=== PATIENT | female | born 1945 | race Caucasian/White ===

== ENCOUNTER 2017-11-27 09:09 | Day surgery (SDC) | payer OTHER, MEDICARE ==
--- NOTE | 2017-11-21 10:20 | HP ---
Admitting History and Physical - Primary Care Physician PCP: Erlin Galo - Admission Chief Complaint: Right breast cancer History of Present Illness: 72 year old postmenapausal female mammogram showing nodular density towards upper aspect right breast and compression views and US 09/2017 showing 3 densities RUOQ 2 cm FN 1.5 cm,3 cm fn 1.6 cm and 4cm fn 1.6 cm . She underwent US core biopsies of the 2 cm and 3 cm FN showing infiltrating mammary carcinoma ER/ND + HER neg She then underwent a separate bx for the 4cm FN and it came back as a fibroadenoma. MRI breast 10/2017 showed right breast cancer x2 at 2:00 and 2 smaller lesions right 6:00 and 3:00 suspicious. Us biopsies of these additional MRI findings were benign but did not correlate with MRI therefore will need to be localized during wide excision. She will need 4 needle localizations . two for the cancer and two for the suspicious findings on MRI with discordinant biopsies. 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: Seizure ( controlled since 1972 last seizure 1986 after trial of stopping tegretol) Cardiovascular: Yes: HTN, Hyperlipdemia - Past Surgical History Additional Past Surgical History: left forearm fracture 2001 - Smoking History Smoking history: Never smoked Have you smoked in the past 12 months: No - Alcohol/Substance Use Hx Alcohol Use: No Home Medications - Allergies Allergies/Adverse Reactions: Allergies Allergy/AdvReac Type Severity Reaction Status Date / Time No Known Allergies Allergy Verified 11/21/17 10:21 - Home Medications Home Medications (free text): tegretol,pravastatin,lisinopril HCTHZ Family Disease History - Family Disease History Family History: Denies Physical Examination Constitutional: Yes: Well Nourished Breast(s): Yes: Other (ptotic C cup with right breast echymosis from recent core biopsies upper aspect. No palpable densities just thickening due to biopsies no adenopathy bilaterally) Problem List - Problems (1) Breast cancer, right Code(s): C50.911 - MALIGNANT NEOPLASM OF UNSP SITE OF RIGHT FEMALE BREAST Qualifiers: Breast location: upper inner quadrant of breast Patient sex: female Assessment/Plan Right breast wide excision with sentenel node biopsy ,lymphoscintogram, possible axillary node dissection, 4 needle localizations
[2017-11-23 11:51] VITALS: BMI 26.7
[2017-11-27] MEDS ORDERED: ISOSULFAN BLUE 10 MG/ML VIAL SQ ONE (12:57)
[2017-11-27] MEDS ORDERED: BUPIVACAINE HCL/PF 2.5 MG/ML - 30 ML VIAL IJ ONE (12:58)
[2017-11-27] MEDS ORDERED: LIDOCAINE HCL 1%, 10 MG/ML (20ML VIAL) ONE (12:58)
[2017-11-27] MEDS ORDERED: KETOROLAC TROMETHAMINE 30 MG/1 ML VIAL IVPUSH PRN (13:24)
[2017-11-27] MEDS ORDERED: ONDANSETRON 4 MG/2 ML VIAL IVPUSH PRN ×2 (13:24→16:39)
[2017-11-27] MEDS ORDERED: DEXTROSE 5%-0.45% SALINE 1,000 ML IV SCH (13:30)
[2017-11-27] MEDS ORDERED: MIDAZOLAM HCL 2 MG/2 ML SINGLE DOSE VIAL ONE (13:59)
[2017-11-27] MEDS ORDERED: LIDOCAINE HCL 2% 100 MG/5 ML DISP.SYRIN ONE (14:16)
[2017-11-27] MEDS ORDERED: ceFAZolin SODIUM 1 GM VIAL ONE (14:21)
[2017-11-27] MEDS ORDERED: DEXAMETHASONE SOD PHOSPHATE 4 MG/1 ML VIAL ONE (14:21)
[2017-11-27] MEDS ORDERED: ONDANSETRON 4 MG/2 ML VIAL ONE (14:21)
[2017-11-27] MEDS ORDERED: BUPIVACAINE HCL/PF 0.25% (2.5MG/ML) 10 ML VIAL IJ ONE ×2 (14:51→16:10)
[2017-11-27] MEDS ORDERED: SUCCINYLCHOLINE CHLORIDE 200 MG/10 ML VIAL ONE (14:56)
[2017-11-27] MEDS ORDERED: ePHEDrine SULFATE 50 MG/1 ML AMPULE ONE (15:08)
[2017-11-27] MEDS ORDERED: oxyCODONE HCL 5 MG TABLET PO PRN ×2 (16:39)
[2017-11-27] MEDS ORDERED: LACTATED RINGERS SOLUTION 1,000 ML IV SCH (16:45)
[2017-11-27] MEDS ORDERED: KETOROLAC TROMETHAMINE 30 MG/1 ML VIAL ONE (16:54)
[2017-11-27 18:59] VITALS: BP 135/72; PULSE 92; TEMP 98.7
--- NOTE | 2017-11-27 22:02 | OP ---
DATE OF OPERATION: 11/27/2017 PREOPERATIVE DIAGNOSIS: Right breast upper inner quadrant breast cancer x2 with 2 separate right MRI breast masses. PROCEDURE: Right breast partial mastectomy with MRI localization x4 with a right axillary sentinel lymph node biopsy and tissue transfer closure. ANESTHESIA: General laryngeal mask airway anesthesia. PRIMARY SURGEON: Erlin Galo MD DIRECTOR OF ONLINE EDUCATION: Lolis Reyes PA-C COMPLICATIONS: None. INDICATIONS: Briefly, the patient is a 72-year-old, G3, P3, postmenopausal white female. She has no family history of breast or ovarian cancer. She was noted to have a couple of densities towards the upper inner aspect of the right breast on screening mammography and ultrasound at the end of 2016. There were 3 separate densities seen on ultrasound in the right breast upper inner quadrant; 2, 3, and 4 cm from the nipple. All of these were biopsied and the densities 2 and 3 cm from the nipple turned out to be low grade infiltrating ductal cancers, which were ER [place]-positive and HER2-negative. She underwent the screening MRI, which showed a couple of other areas of suspicion and these were thought to be seen on ultrasound and she underwent ultrasound-guided biopsy of those 2 areas with clip placement, but they were benign. These were felt to be discordant with the MRI findings. The patient was advised to undergo right breast wide excision since all of these areas seem to be fairly closely approximated on the MRI and she was to have MRI localizations. She understood the need for a sentinel lymph node biopsy. DESCRIPTION OF PROCEDURE: She is brought in for the procedure on November 27, 2017, and underwent the lymphoscintigraphy with a periareolar injection of technetium 99 at [facility]. She was then brought to [facility] where the 4 MRI localizations were performed; 2 of the clips of the cancer, and 2 other areas that were seen on MRI of suspicion. She was brought into the operating room after being seen in the holding area where site verification was made and informed consent was obtained. She did enter a quality of life study for radiation as well. She was brought into the operating room and laid on the OR table in the supine position. Venodynes were placed on the lower extremities and she received 1 g of Ancef prior to incision. She underwent general laryngeal mask airway anesthesia and the right breast was sterilely prepped and draped in the usual fashion with the right arm prepped in the field. Then, 3 mL of Lymphazurin blue were injected intradermally and peritumor around the needle localization site and massage was instituted. The right axillary sentinel lymph node biopsy was first performed. An incision was made just below the hair-bearing area of the right axilla and dissection was undertaken. Two blue hot nodes were found in the level 1 region of the right axilla. The first sentinel node had a 10 second gamma count of 16,459 and the second sentinel lymph node had a 10 second gamma count of 3411. Background counts after removal of these 2 nodes was 323 and no other blue or hot nodes were found. Hemostasis was achieved and the axillary wound was closed by closing the soft tissue with 2-0 plain suture and then closing the skin with interrupted 3-0 deep dermal Vicryl suture and a running 4-0 subcuticular Biosyn suture. At this point, the wide excision was undertaken around the needle localization. A curvilinear incision was made just around the periareolar border of the right breast towards the upper quadrant. Dissection was undertaken around the needle localization and dissection was undertaken around all 4 wires. The breast tissue was completely removed with the wire intact within the specimen. Two of the wires were found to be in the soft tissue fat and after removal of the specimen, these wires just fell out. Specimen radiographs show removal of only 3 of the 4 clips initially with one of the clips where the cancer was, which was not in the specimen. At this point, I was able to find the other clip where the cancer was just towards the upper aspect of the excision. This was labeled as separate superior right breast mass and specimen radiographs showed the clip in question. There was also chronic fibroadenoma, which was excised, which was labeled right breast mass, likely fibroadenoma and sent separately to pathology. Since the separate superior breast mass was one of the cancers, we decided to do a separate wide excision around that superior mass and we did a full excision around that without difficulty and oriented the specimen with the long lateral and short superior suture and called that separate superior wide excision specimen. It was placed in formalin as a separate specimen. At this point, separate margins were taken around the initial wide excision with margins taken on the superior, inferior, medial, lateral, and deep aspects of the sutures marking the biopsy cavity side and these were all sent separately to pathology as margins for the first wide excision. Hemostasis was achieved. At this point, the tissue transfer closure was accomplished by undermining the breast tissue and brining in a 3 x 4 cm area of breast tissue into the wound to close the defect. The breast tissue was reapproximated using 2-0 plain suture. The skin was closed using interrupted 3-0 deep dermal Vicryl suture and a running 4-0 subcuticular Biosyn suture. Mastisol and Steri-Strips were applied over the wound with a compressive dressing placed over this. She was placed in a surgical bra postoperatively. The patient had the laryngeal mask airway tube removed at the end of the case and will be recovered in the postanesthesia care unit and discharged home the same day once discharge criteria are met. She will follow up in the office in 1 week for formal wound pathology check. All sponge and needle counts were correct at the end of the case. Estimated blood loss was about 30 mL. ERLIN GALO M.D. [id number]
--- NOTE | 2017-12-03 14:59 | PATH ---
Surgical Pathology Report Patient Name: DEBBIE STOVALL [facility]. Rec. #: [id number] /Age/Gender: 1945 (Age: 72) / F Account: [id number] Location: [facility] AMBULATORY Taken: 11/27/2017 Received: 11/27/2017 Reported: 12/03/2017 Physicians: Erlin Galo M.D. Specimen(s) Received A: RIGHT AXILLARY SENTINEL NODE #1 B: RIGHT AXILLARY SENTINEL NODE #2 C: RIGHT BREAST WIDE EXCISION D: RIGHT BREAST MASS E: RIGHT BREAST SUPERIOR CANCER WITH CLIP F: RIGHT BREAST SUPERIOR WIDE EXCISION G: RIGHT BREAST SUPERIOR MARGIN H: RIGHT BREAST MEDIAL MARGIN I: RIGHT BREAST LATERAL MARGIN J: RIGHT BREAST INFERIOR MARGIN K: RIGHT BREAST DEEP MARGIN Clinical History Invasive Ca, 2 separate cancers excised Final Diagnosis A. LYMPH NODE, RIGHT AXILLARY SENTINEL #1, EXCISION: ONE LYMPH NODE, NEGATIVE FOR METASTATIC CARCINOMA (0/1). B. LYMPH NODE, RIGHT AXILLARY SENTINEL #2, EXCISION: ONE LYMPH NODE, NEGATIVE FOR METASTATIC CARCINOMA (0/1). C. BREAST, RIGHT, WIDE EXCISION: INVASIVE DUCTAL CARCINOMA, MODERATELY DIFFERENTIATED (TUBULE SCORE: 3/3, NUCLEAR GRADE: 2/3, MITOTIC SCORE: 2/3; TOTAL NIKIA SCORE: 7/9). INVASIVE CARCINOMA MEASURES 1.5 CM IN GREATEST DIMENSION, MICROSCOPICALLY. ADDITIONAL SEPARATE FOCUS OF INVASIVE DUCTAL CARCINOMA, MODERATELY DIFFERENTIATED , MEASURING 4 MM IN GREATEST DIMENSION, TRANSECTED AT/EXTENDING TO THE SUPERIOR MARGIN, IS PRESENT AT 4 MM FROM THE MAIN TUMOR MASS (SEE NOTE). FOCAL DUCTAL CARCINOMA IN SITU (DCIS), SOLID TYPE, INTERMEDIATE NUCLEAR GRADE IS PRESENT AWAY FROM INVASIVE CARCINOMA. INVASIVE CARCINOMA EXTENDS TO THE SUPERIOR MARGIN AND IS CLOSE TO (< 1 MM) THE MEDIAL MARGIN. SEE SPECIMENS G-K FOR FINAL MARGINS. SKIN IS PRESENT AND IS UNINVOLVED BY CARCINOMA. LYMPHOVASCULAR INVASION IS IDENTIFIED. PRIOR BIOPSY SITE CHANGES ARE PRESENT. REMAINING BREAST TISSUE SHOWS FIBROCYSTIC CHANGES, INTRADUCTAL PAPILLOMA AND SMALL FIBROADENOMA. PATHOLOGIC STAGE (pTNM): (m) pT1c pN0. Note: The separate focus of invasive carcinoma may represent a portion of the second carcinoma which is excised in specimens E & F. Correlation with clinical and radiologic findings is recommended. D. BREAST, RIGHT, MASS, EXCISION: FIBROADENOMA SCLEROSED AND CALCIFIED. E. BREAST, RIGHT, SUPERIOR, CANCER WITH CLIP, EXCISION: INVASIVE DUCTAL CARCINOMA, MODERATELY DIFFERENTIATED (TUBULE SCORE: 3/3, NUCLEAR GRADE: 2/3, MITOTIC SCORE: 2/3; TOTAL NIKIA SCORE: 7/9). INVASIVE CARCINOMA MEASURES 1.3 CM IN GREATEST DIMENSION, MICROSCOPICALLY. DUCTAL CARCINOMA IN SITU (DCIS), SOLID, CRIBRIFORM AND PAPILLARY TYPE, INTERMEDIATE NUCLEAR GRADE IS PRESENT ADMIXED WITH INVASIVE CARCINOMA. INVASIVE CARCINOMA EXTENDS TO UNDESIGNATED INKED MARGINS ALONG A BROAD FRONT. DCIS IS CLOSE TO (< 1 MM) UNDESIGNATED INKED MARGINS AT A FEW FOCI. SEE SPECIMEN F FOR FINAL MARGINS. LYMPHOVASCULAR INVASION IS IDENTIFIED. PRIOR BIOPSY SITE CHANGES ARE PRESENT. SEE SPECIMEN C FOR PATHOLOGIC STAGE AND ALSO INVASIVE CARCINOMA CASE SUMMARY BELOW. F. BREAST, RIGHT, SUPERIOR, WIDE EXCISION: INVASIVE DUCTAL CARCINOMA, MODERATELY DIFFERENTIATED (TUBULE SCORE: 3/3, NUCLEAR GRADE: 2/3, MITOTIC SCORE: 2/3; TOTAL NIKIA SCORE: 7/9). INVASIVE CARCINOMA MEASURES 5 MM IN GREATEST DIMENSION, MICROSCOPICALLY. SURGICAL MARGINS ARE UNINVOLVED BY CARCINOMA; CARCINOMA IS AT 1 MM FROM THE CLOSEST (SUPERIOR) MARGIN. LYMPHOVASCULAR INVASION IS PRESENT. PRIOR BIOPSY SITE CHANGES ARE IDENTIFIED. REMAINING BREAST TISSUE SHOWS PROLIFERATIVE FIBROCYSTIC CHANGES AND INTRADUCTAL PAPILLOMA. SEE SPECIMEN C FOR PATHOLOGIC STAGE AND ALSO INVASIVE CARCINOMA CASE SUMMARY BELOW. G. BREAST, RIGHT, SUPERIOR MARGIN, EXCISION: BENIGN BREAST TISSUE. H. BREAST, RIGHT, MEDIAL MARGIN, EXCISION: RADIAL SCAR, USUAL DUCTAL HYPERPLASIA (UDH), INTRADUCTAL PAPILLOMA WITH FLORID HYPERPLASIA AND FIBROADENOMA. I. BREAST, RIGHT, LATERAL MARGIN, EXCISION: RADIAL SCAR, CYSTIC APOCRINE METAPLASIA, USUAL DUCTAL HYPERPLASIA (UDH) AND INTRADUCTAL PAPILLOMA WITH FLORID HYPERPLASIA. J. BREAST, RIGHT, INFERIOR MARGIN, EXCISION: FOCAL ATYPICAL DUCTAL HYPERPLASIA (ADH), CYSTIC APOCRINE METAPLASIA, USUAL DUCTAL HYPERPLASIA (UDH) AND INTRADUCTAL PAPILLOMA WITH FLORID HYPERPLASIA. K. BREAST, RIGHT, DEEP MARGIN, EXCISION: BENIGN FIBROADIPOSE TISSUE. Comments Breast Invasive Carcinoma: Surgical Pathology Case Summary (Based on AJCC TNM 8 th edition) Procedure _X_ Excision (less than total mastectomy) Specimen Laterality _X_ Right Tumor Size _X_ Greatest dimension of largest invasive focus >1 mm (millimeters): 15 mm Histologic Type _X_ Invasive carcinoma of no special type (ductal, not otherwise specified) Histologic Grade (Nikia Histologic Score) Glandular (Acinar)/Tubular Differentiation _X_ Score 3 (<10% of tumor area forming glandular/tubular structures) Nuclear Pleomorphism _X_ Score 2 Mitotic Rate _X_ Score 2 Overall Grade _X_ Grade 2 (scores of 6 or 7) Tumor Focality _X_ Multiple foci of invasive carcinoma Number of foci: 2 Sizes of individual foci: 1.5 cm, 1.3 cm Ductal Carcinoma In Situ (DCIS) _X_ DCIS is present in specimen _X_ Negative for extensive intraductal component (EIC) Margins Invasive Carcinoma Margins _X_ Uninvolved by invasive carcinoma Distance from closest margin (millimeters): carcinoma extends to superior margin and is < 1mm from the medial margin in wide excision C; carcinoma extends to undesignated margins in excision E. The final superior and medial margins G & H, corresponding to final margins for specimen C, are negative for carcinoma. Carcinoma is at 1 mm from the final superior margin with all other margins widely clear of carcinoma in wide excision F, which corresponds to final margins for specimen E. DCIS Margins _X_ Uninvolved by DCIS Distance from closest margin (millimeters) : < 1 mm from undesignated margins in specimen E; specimen F which corresponds to final margins for specimen E shows no DCIS. Regional Lymph Nodes Number of Lymph Nodes with Macrometastases (>2 mm): 0 Number of Lymph Nodes with Micrometastases (>0.2 mm to 2 mm and/or >200 cells):0 Number of Lymph Nodes with Isolated Tumor Cells (=0.2 mm and =200 cells):0 Number of Lymph Nodes Examined: Number of [place] Nodes Examined : 2 Treatment Effect _X_ No known presurgical therapy Lymphovascular Invasion _X_ Present Pathologic Stage Classification (pTNM, AJCC 8th Edition) Primary Tumor (Invasive Carcinoma) (pT) _X_ (m) pT1c: Tumor >10 mm but =20 mm in greatest dimension Regional Lymph Nodes (pN) Category (pN) _X_ pN0: No regional lymph node metastasis identified or ITCs only Biomarker Studies Results of ER, MD, Her2 and Ki67 studies will be reported separately in an addendum. Electronically Signed Lilly Mack M.D. Gross Description A. Received in formalin labeled "right axillary sentinel node #1," is a 1.0 x 0.9 x 0.4 cm blue, irregular lymph node with attached fat. The specimen is bisected and entirely submitted in one cassette. B. Received in formalin labeled "right axillary sentinel node #2," is a 1.0 x 0.7 x 0.3 cm velazquez, irregular lymph node with attached fat. The specimen is submitted in total in one cassette. C. Received in formalin, labeled "right breast wide excision," is a 6.3 x 3.7 x 3.7 cm. velazquez-yellow, irregular, portion of fibroadipose tissue with 2 needle localization wires present. There is a short suture marking the superior aspect and a long suture marking the lateral aspect, per the surgeon. The anterior surface displays a 1.5 x 0.5 cm velazquez, elliptical, unremarkable portion of skin. The specimen is inked as follows: Superior blue; inferior green; lateral red; medial yellow; deep black. The specimen is serially sectioned from anterior to deep. Sectioning reveals a 1.4 x 1.3 x 1.2 cm velazquez, indurated, well-circumscribed mass abutting the medial and superior margins. The mass is surrounded by abundant dense, white, firm fibrous tissue. District Sales Leader sections are submitted in 8 cassettes as follows: 1-3-one full-face section of mass each (each with superior and medial margins); 4-5-fibrous tissue surrounding mass with lateral margin; 6-inferior margin; 7-skin; 8-deep margin. D. Received in formalin labeled "right breast mass," is a 1.5 x 1.3 x 0.8 cm velazquez, ovoid, unoriented, firm mass. There is no needle localization wire present. There is no skin present. The specimen is inked blue and serially sectioned. Sectioning reveals velazquez, calcified parenchyma. The specimen is entirely submitted in 2 cassettes, following decalcification. E. Received in formalin labeled "right breast superior cancer with clip," is a 2.0 x 1.5 x 1.3 cm velazquez, irregular, unoriented portion of fibroadipose tissue. There is no needle localization wire present. There is no skin present. The specimen is inked blue and serially sectioned. Sectioning reveals diffuse velazquez, firm tissue. The specimen is entirely and sequentially submitted in 5 cassettes. F. Received in formalin, labeled "right breast superior wide excision," is a 3.5 x 3.4 x 2.5 cm. velazquez-yellow, irregular, portion of fibroadipose tissue. There is no needle localization wire present. There is a short suture marking the superior aspect and a long suture marking the lateral aspect, per the surgeon. There is no skin or nipple present. The specimen is inked as follows: Superior blue; inferior green; anterior and lateral red; medial yellow; deep black. The specimen is serially sectioned from anterior to deep. Sectioning reveals a 1.4 x 1.0 x 1.0 cm velazquez, fibrous to firm mass. The mass is at 0.2 cm from the inferior margin, 0.3 cm from the superior margin, 0.3 cm from the anterior margin, 0.3 cm from the medial margin and 0.5 cm from the lateral margin. District Sales Leader sections are submitted in 7 cassettes as follows: 1-anterior margin; 2-3-one full-face bisected section of mass (2-superior, medial and lateral margins; 3-inferior, medial and lateral margins); 2-7-zkihsfxiiu full-face bisected section of mass (4-superior, medial and lateral margins; 5-inferior, medial and lateral margins); 6-additional mass superior, inferior and medial margins; 7-deep margin. G. Received in formalin labeled "right breast superior margin," is a 3.0 x 2.3 x 1.3 cm irregular portion of fibroadipose tissue with a suture marking the biopsy cavity side, per the surgeon. The new margin is inked blue and the specimen is serially sectioned. The specimen is entirely and sequentially submitted in 5 cassettes. H. Received in formalin labeled "right breast medial margin, "is a 2.6 x 2.0 x 1.2 cm irregular portion of fibroadipose tissue with a suture marking the biopsy cavity side, per the surgeon. The new margin is inked blue and the specimen is serially sectioned. The specimen is entirely submitted in 3 cassettes. I. Received in formalin labeled "right breast lateral margin," is a 2.5 x 2.2 x 1.3 cm irregular portion of fibroadipose tissue with a suture marking the biopsy cavity site, per the surgeon. The new margin is inked blue and the specimen is serially sectioned. The specimen is entirely submitted in 3 cassettes. J. Received in formalin labeled "right breast inferior margin," is a 2.3 x 1.8 x 0.8 cm irregular portion of fibroadipose tissue with a suture marking the biopsy cavity side, per the surgeon. The new margin is inked blue and the specimen is serially sectioned. The specimen is entirely submitted in 3 cassettes. K. Received in formalin labeled "right breast deep margin," is a 2.5 x 1.7 x 0.8 cm irregular portion of fibroadipose tissue with a suture marking the biopsy cavity side, per the surgeon. The new margin is inked blue and the specimen is serially sectioned. The specimen is entirely submitted in 3 cassettes. Time to formalin fixation: Not given Total formalin fixation time: Approximately 25-30 hours 11/28/201711/28/2017
== END 2017-11-27 18:59 | disposition home or self-care (01) ==
LOC: FASU 09:09
PROVIDERS: ATTEND Surgery Surgical Oncology
PROC: 0JX60ZC Transfer Chest Subcutaneous Tissue and Fascia with Skin, Subcutaneous Tissue and Fascia, Open Approach (ICD-10-PCS; 2017-11-27)
PROC: 0HBT0ZZ Excision of Right Breast, Open Approach (ICD-10-PCS; principal; 2017-11-27 14:33)
PROC: 07B50ZX Excision of Right Axillary Lymphatic, Open Approach, Diagnostic (ICD-10-PCS; 2017-11-27 14:33)
DX: C50.211 Malignant neoplasm of upper-inner quadrant of right female breast (principal)
CPT/HCPCS: 19288; 77021-TC; 77065-TC; 78195-TC; 94760; A4648; A9541; C1887